=== PATIENT | male | born 1960 | race Caucasian/White ===

== ENCOUNTER 2017-01-06 12:01 | Inpatient (IN) | payer BC ==
--- NOTE | ~2017-01-06 | DS ---
Discharge Summary [facility] [address] [place]. [address] NAME: MARCOS PAEZ : 62 STATUS : DIS IN PAT#: [id number] AGE: 56 ADM/REG DATE : 01/06/17 MR#: [id number] REPORT SERV DATE: 01/09/17 DICTATED BY: PAMELA LO DATE: 01/08/17 REPORT STATUS : Draft TRANSCRIBED BY: MODL DATE: 01/08/17 ADMISSION DATE: 01/06/2017 DISCHARGE DATE: 01/08/2017 FINAL DIAGNOSES: 1. Nonischemic cardiomyopathy. 2. Left bundle branch block. 3. Typical chest pain. 4. Hypertension. DIAGNOSTIC EXAMS: CAT scan of the brain showing hyperdense vasculature either representing dehydration or polycythemia, diffuse finding. Benign choroidal fissure cyst, 7 mm on the right. Probable skin lesion in the right parietal scalp. Chest x-ray: No radiographic evidence of acute process. CAT scan of the chest showing normal heart size. Thoracic aorta is normal size and configuration. No lung masses, lung infiltrates, or adenopathy. Cervical spine x-ray showing no acute cervical spine abnormality. Echocardiogram showing moderate left ventricle systolic dysfunction with EF of 25% to 30%. Left ventricle diastolic dysfunction is present. Right ventricle systolic function intact. No significant valvular dysfunction noted. No previous study to compare. HOSPITAL COURSE: Please refer to the H and P done by Dr. Huynh dated on 01/06/2017. Briefly, this is a 56-year-old male who comes in for chest pain. The patient has a history of smoking and drinking and was doing well until he started choking on milk breads, then started having some headache and chest pain. The patient was brought to the emergency room, was found to have an elevated blood pressure. We did the above tests, and they got Cardiology involved. Because of the echocardiogram showing low ejection fraction, he underwent a cardiac cath which showed no significant CAD, normal left ventricular end- diastolic filling pressure, mildly depressed left ventricular systolic function in the single plane. Recent echo was severely depressed with EF of 25% to 30%. Findings consistent with nonischemic cardiomyopathy. Cardiology started the patient on Coreg and lisinopril and believed that the EF is actually around 40% to 45%, but because of the dyssynchrony from the left bundle branch block that it probably would show a false lower EF in the transthoracic echo. The patient was cleared for discharge and the patient is now itching to go home. The patient will follow up with his PCP, Dr. Jaime De, in a week's time and then follow up with Dr. Guzman in the [facility] in one month. He will be discharged on the following medications. Coreg 3.125 mg twice a day, lisinopril 5 mg a day, Tylenol and aspirin p.r.n., multivitamin once a day. This has been explained to the patient in front of a family member. TIME SPENT: 35 minutes. Discharge Summary [address] [address] NAME: MARCOS PAEZ : 62 STATUS : DIS IN [facility]#: [id number] AGE: 56 ADM/REG DATE : 01/06/17 MR#: [id number] REPORT SERV DATE: 01/09/17 DICTATED BY: PAMELA LO DATE: 01/08/17 REPORT STATUS : Draft TRANSCRIBED BY: ED DATE: 01/08/17 DICTATED BY: Alexandro Menendez/ED Pamela Lo M.D. / [id number] CC: Alexandro Menendez M.D.
--- NOTE | ~2017-01-06 | HP ---
History And Physical [place] [address] [facility] [place]. [address] NAME: MARCOS PAEZ : 62 STATUS : ADM Giovanni PAT#: [id number] AGE: 56 ADM/REG DATE : 01/06/17 MR#: [id number] REPORT SERV DATE: 01/06/17 DICTATED BY: SRIDHAR WATTS DATE: 01/06/17 REPORT STATUS : Draft TRANSCRIBED BY: MODL DATE: 01/06/17 DATE OF ADMISSION: 01/06/2017 REASON FOR ADMISSION: Chest pain. HISTORY OF PRESENT ILLNESS: This is a 56-year-old, white male, referred up here by Dr. De this morning. The patient went to Dr. De with complaint of the following: He was lying in a recliner yesterday, eating Milk Duds when he choked on one of them. He could get air out but could not breathe in. He coughed and strained. His called 911, however, he cleared it just before 911 arrived. Since that time, he has had a headache back of the neck. He has also had tingling in his left arm, feeling like a blood pressure cuff has blown up over it. He does have a history of high blood pressure. He was given hydrocodone for his low back pain by Dr. De. Because his blood pressure raised, he stopped hydrocodone. His blood pressure went back down to normal. He has neck pain radiating to the left arm, headache, and chest pain. Describes a pressure like blood pressure cuff being blown over his chest as well now. No worse with swallowing. No worse with deep breathing. No cough. No fever, chills, night sweats. No hemoptysis. He does not have any weakness in his left arm. Dr. Burr saw him in the emergency room and did a CT scan of his brain that showed hyperdense vasculature but otherwise was unremarkable and with the unexplained symptoms asked for admission to observation by the hospitalist to rule out serious illness looking for symptoms or signs of other abnormalities. His EKG is abnormal. He has left bundle-branch block. He had an EKG in Dr. De's office prior to sending him to the emergency room that we do not have a copy of. PAST MEDICAL HISTORY: He is on no medications. He used to be on blood pressure medicines and hydrocodone from Dr. De. He does have low back pain. 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 SOCIAL HISTORY: He has been 20 years second time. He has had two biological children from first marriage. One lives in , the other lives in [place]. 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 He smokes about a pack of cigarettes a day. He drinks 2 beers a day when he is on the road welding but at home he drinks nothing. He does not attend [employer]. FAMILY HISTORY: Mother had over 60 surgeries. He had a brother with an IA and two sisters with MIs in the past. REVIEW OF SYSTEMS: He has chest pain. No dyspnea on exertion. No coughing. He did have some vomiting after he choked while on the Milk Dud but has had none since that time. He is convinced he has History And Physical [address] [address] NAME: MARCOS PAEZ : 62 STATUS : ADM Giovanni PAT#: [id number] AGE: 56 ADM/REG DATE : 01/06/17 MR#: [id number] REPORT SERV DATE: 01/06/17 DICTATED BY: SRIDHAR WATTS DATE: 01/06/17 REPORT STATUS : Draft TRANSCRIBED BY: ED DATE: 01/06/17 coronary arterial disease because of his smoking and family history. Dr. De sees about, his cholesterol may be elevated but he is not sure, he has never been on any cholesterol medications for it. He has had no abdominal pain. No unilateral weakness. No swelling in lower extremities. No melena, hematemesis, fits, seizures, convulsions, hemoptysis, hematuria, fever, chills, night sweats, unilateral weakness. He has had no vomiting or diarrhea today. Remainder of review of systems negative. PHYSICAL EXAMINATION: VITAL SIGNS: Blood pressure 173/91 in the left, 192/98 on the right, heart rate 75, respiratory rate 18, afebrile. HEENT: EOMI. Sclerae clear. Conjunctivae pink. NECK: No bruit. No JVD. CHEST: Clear to A and P. HEART: Regular S1, S2 without murmur, gallop, or click. ABDOMEN: Soft, nontender. Bowel sounds positive. No HSM. EXTREMITIES: Have no edema. Distal pulses intact in dorsalis pedis and posterior tibial. NEUROLOGICAL: He withdraws to plantar stimulation. Cyanide Pot Hardener is symmetric bilaterally. Coordination intact. No tremor. He is symmetric neurologically bilaterally. LYMPHATICS: There is no adenopathy palpable. His strength is equal and symmetric. Sensory is grossly intact bilaterally though he has subjective complaints on the left side. LABORATORY DATA: INR is 1.0. His hemoglobin 16, hematocrit 46.5, white count 8.1, platelet count 177,000. His sodium 137, potassium 4.7, creatinine 0.79, BUN 12, magnesium 2.3. Troponin less than 0.02. The chest x-ray done shows no acute process. The CT scan of the brain is as described. ASSESSMENT: 1. Chest pain, atypical angina pectoris. The patient has strong family history and believes he has coronary artery disease, history of hypertension as well. 2. History of choking on Milk Dud. 3. Low back pain, previously on hydrocodone. 4. History of elevated blood pressure with hydrocodone. 5. Abnormal EKG with left bundle-branch block. 6. Hypertension, asymmetric in right left arm. I am going to go ahead and check his CT scan of the chest looking for thoracic aortic aneurysm. PLAN: 1. I will do serial troponins. Also check CPK. Check echocardiogram for wall motion abnormalities and the CT scan of the chest for thoracic aortic aneurysm. I doubt the nuclear medicine stress test is going to be very helpful for us because a false- positive nature of those with a left bundle-branch block. He may need a cardiac catheterization, especially if troponins rise, we will go ahead and consult [facility] to plan for cardiac catheterization in the morning and checks C-spine two views because of the neck pain. If all the tests are unrevealing, plan CT scan of the cervical spine because of left radiculopathy. History And Physical [address] [place]. [address] NAME: MARCOS PAEZ : 62 STATUS : ADM Giovanni PAT#: [id number] AGE: 56 ADM/REG DATE : 01/06/17 MR#: [id number] REPORT SERV DATE: 01/06/17 DICTATED BY: SRIDHAR WATTS DATE: 01/06/17 REPORT STATUS : Draft TRANSCRIBED BY: ED DATE: 01/06/17 DB/ED Sridhar Watts M.D. / [id number] CC: Jono Cordoba Jr, MD [facility] Jaime De M.D.
--- NOTE | ~2017-01-06 | CN ---
Consultation Report [facility] [address] [place]. [address] NAME: MARCOS PAEZ : 62 STATUS : ADM Giovanni PAT#: [id number] AGE: 56 ADM/REG DATE : 01/06/17 MR#: [id number] REPORT SERV DATE: 01/06/17 DICTATED BY: IDRIS GUZMAN DATE: 01/06/17 REPORT STATUS : Draft TRANSCRIBED BY: MODL DATE: 01/06/17 CARDIOLOGY CONSULTATION DATE OF CONSULTATION: 01/06/2017 REASON FOR CONSULTATION: Chest pain and newly diagnosed left bundle-branch block. HISTORY OF PRESENT ILLNESS: Mr. Paez is a 56-year-old man with no previous cardiovascular history. The patient reports that he was in his usual state of health until earlier today. The patient was eating candy, which he has been taking in order to reduce cravings for cigarettes. The patient apparently had an episode of severe coughing after choking on a piece of candy. Shortly after this coughing fit, the patient experienced a substernal pressure-type chest pain with radiation to his arms and neck. The patient also reported feeling somewhat diaphoretic and having dyspnea. The patient associated his symptoms with a panic attack. The patient presented to the emergency room with his for further evaluation. The patient was found to have a left bundle-branch block pattern on his 12-lead EKG. As far as the patient is aware, this is a new finding. At this time, however, the patient is chest pain-free. Of note, his blood pressure was found to be significantly elevated at the time of his ER admission with a systolic blood pressure of approximately 196 mmHg. PAST MEDICAL HISTORY: Hypertension, otherwise, noncontributory. PAST SURGICAL HISTORY: The patient denies any significant previous surgeries. FAMILY HISTORY: The patient reports that one of his sisters suffered myocardial infarction at age 55. A second sister underwent coronary artery bypass grafting surgery at age 59. The patient's father underwent coronary artery bypass grafting surgery in his late 40s. His mother was diagnosed with coronary artery disease, though at a more advanced age. SOCIAL HISTORY: The patient is a two-pack per day smoker x30 years. He is trying to quit. He drinks alcohol occasionally. He denies recreational drug use. He is . ALLERGIES: THE PATIENT REPORTS NO KNOWN MEDICATION ALLERGIES. HOME MEDICATIONS: The patient takes aspirin 81 mg p.o. daily as well as a multivitamin with no doctor-prescribed medications. REVIEW OF SYSTEMS: A complete 12-system review was performed. This is noncontributory except for the pertinent positives and negatives noted in the history of present illness above. PHYSICAL EXAMINATION: VITAL SIGNS: Temperature is 98.4 degrees Fahrenheit, blood pressure 135/91 mmHg, heart rate Consultation Report [address] [address] NAME: MARCOS PAEZ : 62 STATUS : ADM Giovanni PAT#: [id number] AGE: 56 ADM/REG DATE : 01/06/17 MR#: [id number] REPORT SERV DATE: 01/06/17 DICTATED BY: IDRIS GUZMAN DATE: 01/06/17 REPORT STATUS : Draft TRANSCRIBED BY: ED DATE: 01/06/17 is 66 beats per minute and regular, respirations 16, oxygen saturation is 98% on room air. CONSTITUTIONAL: The patient is a well-nourished, well-developed white man in no acute distress. EYES: PERRL, EOMI, clear conjunctiva. HEAD/MNT: NCAT with moist mucous membranes and grossly normal hard and soft palate. NECK: Supple with no obvious thyromegaly or lymphadenopathy CARDIOVASCULAR: There is a regular rhythm with a normal S1 and a paradoxically split second heart sound. No significant murmurs, rubs, or gallops are noted. The jugular venous pressure is normal. PULMONARY: Clear to auscultation bilaterally, no wheezing, rales or rhonchi noted. No dullness to percussion. Non-labored. ABDOMINAL: Soft, non-tender, non-distended with no hepatosplenomegaly noted. EXTREMITIES: No clubbing, cyanosis or edema. MUSCULOSKELETAL: Grossly normal strength and range of motion in all extremities INTEGUMENTARY: Skin appears intact with no bruises, wounds or active lesions noted NEURO/PSYC: Alert and oriented x3, with no dysarthria, facial droop or lateralizing weakness noted. Insert physical exam template for Pantera Guzman modified as follows. 12-lead EKG: This shows normal sinus rhythm with a left bundle-branch block pattern and secondary ST/T-wave changes. No previous ECGs are available. LABORATORY DATA: White blood cell count is 8.1, hemoglobin 16, hematocrit 47, and platelets 177. INR is 1.0. Chemistry profile shows a sodium of 143, potassium 4.7, chloride is 111, CO2 of 29, BUN 12, creatinine is 0.79, glucose is 96, calcium 9.6, magnesium 2.3. Troponin is less than 0.02 with a 2nd troponin also less than 0.02 and a total CK of 68. CHEST X-RAY: No acute cardiopulmonary process. ASSESSMENT AND PLAN: 1. Chest pain with typical and atypical features: The patient reports that prior to his recent event, he was able to exercise essentially without restriction. The patient denies any exertional chest pain. However, the patient's episode does have features of unstable angina. The patient also has multiple cardiovascular risk factors which include male gender, cigarette smoking, and a strong positive family history of early coronary heart disease. At this time, the patient remains relatively hypertensive. He will be started on carvedilol 3.125 mg p.o. twice daily. Should this not achieve a systolic blood pressure consistently less than 180 and a diastolic blood pressure consistently less than 95 mmHg, we will also start lisinopril 5 mg p.o. daily. We will continue aspirin. A transthoracic echocardiogram will be obtained tomorrow. Should this be unremarkable, I will discuss the options for further workup. Specifically, we will discuss the pros and cons of a noninvasive workup with myocardial perfusion imaging versus coronary angiography for definitive diagnosis. The patient will be made n.p.o. past midnight tonight. 2. Hypertension: Start carvedilol as noted above. Consultation Report [address] [address] NAME: MARCOS PAEZ : 62 STATUS : ADM Giovanni PAT#: [id number] AGE: 56 ADM/REG DATE : 01/06/17 MR#: [id number] REPORT SERV DATE: 01/06/17 DICTATED BY: IDRIS GUZMAN DATE: 01/06/17 REPORT STATUS : Draft TRANSCRIBED BY: ED DATE: 01/06/17 3. Tobacco abuse: I will discuss strategies for smoking cessation with the patient depending on results of his workup. Thank you for allowing me to participate in the care of Mr. Paez. The Cardiology Service will continue to follow this patient closely during this hospitalization. ARPAN/ED Idris Guzman MD / [id number] CC: Jaon Coleman M.D.
[2017-01-06 11:32] LABS: BASOPHILS 0.4 %; BASOPHILS ABSOLUTE 0.03 10/3/uL (0.0-0.16); EOSINOPHILS 1.5 %; EOSINOPHILS ABSOLUTE 0.12 10/3/uL (0.0-0.53); ER CBC TAT 0 Hrs 16 Mins; HEMATOCRIT 46.5 % (40.0-51.0); IMMATURE GRANULOCYTES 0.2 %; IMMATURE GRANULOCYTES ABSOLUTE 0.02 10/3/uL (0.0-0.11); LYMPHOCYTES ABSOLUTE 2.74 10/3/uL (0.67-4.30); MEAN CORPUS HGB CONC 34.4 g/dL (32.0-36.0); MEAN CORPUSCULAR HEMOGLOB 31.7 pg (26.0-34.0); MEAN CORPUSCULAR VOLUME 92.3 fL (80-100); MEAN PLATELET VOLUME 10.6 fL (9.2-13.0); MONOCYTES ABSOLUTE 0.56 10/3/uL (0.21-1.20); NEUTROPHILS 56.9 %; NEUTROPHILS ABSOLUTE 4.58 10/3/uL (2.02-8.40); PLATELET COUNT 177 10/3/uL (150-400); RBC DISTRIBUTION WIDTH 13.5 % (12.0-16.0); RED CELL COUNT 5.04 10/6/uL (4.7-6.1); WHITE BLOOD CELLS 8.1 10/3/uL (4.5-10.5)
[2017-01-06 11:34] LABS: MANUAL DIFF NO %
[2017-01-06 11:38] LABS: PARTIAL THROMBO TIME 32.6 SEC (22.5-37.2); PROTIME (NOT ORD) 12.9 SEC (12.0-14.5)
[2017-01-06 11:51] LABS: BUN (BLOOD UREA NITROGEN) 12 MG/DL (6-23); CALCIUM, SERUM 9.6 MG/DL (8.5-10.4); CHLORIDE, SERUM 111 MMOL/L (96-112); CO2 (CARBON DIOXIDE) 29 MMOL/L (24-34); CREATININE 0.79 MG/DL (0.70-1.30); GFR AFRICAN AMERICAN 117 ML/MIN (>=60); GFR NON AFRICAN AMERICAN 101 ML/MIN (>=60); GLUCOSE, SERUM 96 MG/DL (60-99); POTASSIUM, SERUM 4.7 MMOL/L (3.5-5.3); SODIUM, SERUM 143 MMOL/L (135-148); TROPONIN I <0.02 NG/ML (<0.05)
[2017-01-06 11:53] LABS: CHEST PAIN PROFILE TAT 0 Hrs 35 Mins
[2017-01-06] MEDS ORDERED: T PO (14:44)
[2017-01-06] MEDS ORDERED: ASAB PO (14:45)
[2017-01-06] MEDS ORDERED: CENTRUM PO (14:45)
[2017-01-06 17:38] LABS: CPK 68 U/L (0-200); TROPONIN I <0.02 NG/ML (<0.05)
[2017-01-07 04:32] LABS: BASOPHILS 0.4 %; BASOPHILS ABSOLUTE 0.03 10/3/uL (0.0-0.16); EOSINOPHILS 3.5 %; EOSINOPHILS ABSOLUTE 0.27 10/3/uL (0.0-0.53); HEMATOCRIT 45.5 % (40.0-51.0); HEMOGLOBIN 15.7 g/dL (13.6-17.8); IMMATURE GRANULOCYTES 0.1 %; IMMATURE GRANULOCYTES ABSOLUTE 0.01 10/3/uL (0.0-0.11); LYMPHOCYTES 38.2 %; LYMPHOCYTES ABSOLUTE 2.92 10/3/uL (0.67-4.30); MANUAL DIFF NO %; MEAN CORPUS HGB CONC 34.5 g/dL (32.0-36.0); MEAN CORPUSCULAR HEMOGLOB 32.1 pg (26.0-34.0); MEAN PLATELET VOLUME 11.2 fL (9.2-13.0); MONOCYTES 7.6 %; MONOCYTES ABSOLUTE 0.58 10/3/uL (0.21-1.20); NEUTROPHILS 50.2 %; NEUTROPHILS ABSOLUTE 3.83 10/3/uL (2.02-8.40); PLATELET COUNT 185 10/3/uL (150-400); RBC DISTRIBUTION WIDTH 13.3 % (12.0-16.0); RED CELL COUNT 4.89 10/6/uL (4.7-6.1); WHITE BLOOD CELLS 7.6 10/3/uL (4.5-10.5)
[2017-01-07 04:46] LABS: BUN (BLOOD UREA NITROGEN) 15 MG/DL (6-23); CALCIUM, SERUM 9.1 MG/DL (8.5-10.4); CHLORIDE, SERUM 108 MMOL/L (96-112); CO2 (CARBON DIOXIDE) 26 MMOL/L (24-34); CREATININE 0.85 MG/DL (0.70-1.30); GFR AFRICAN AMERICAN 114 ML/MIN (>=60); GFR NON AFRICAN AMERICAN 98 ML/MIN (>=60); GLUCOSE, SERUM 117 MG/DL (60-99); POTASSIUM, SERUM 4.2 MMOL/L (3.5-5.3); SODIUM, SERUM 138 MMOL/L (135-148)
[2017-01-07 18:34] LABS: CHOL/HDL RATIO(NOT ORDER) 7.7 (0-5); CHOLESTEROL 193 MG/DL (< 200); HDL CHOLESTEROL 25 MG/DL (> 39); NON-HDL CHOLESTEROL 168 MG/DL (< 160); TRIGLYCERIDE 433 MG/DL (< 150)
[2017-01-08 05:24] LABS: BASOPHILS 0.3 %; BASOPHILS ABSOLUTE 0.02 10/3/uL (0.0-0.16); EOSINOPHILS 2.9 %; EOSINOPHILS ABSOLUTE 0.22 10/3/uL (0.0-0.53); HEMATOCRIT 44.9 % (40.0-51.0); HEMOGLOBIN 15.3 g/dL (13.6-17.8); IMMATURE GRANULOCYTES 0.1 %; IMMATURE GRANULOCYTES ABSOLUTE 0.01 10/3/uL (0.0-0.11); LYMPHOCYTES 36.7 %; LYMPHOCYTES ABSOLUTE 2.78 10/3/uL (0.67-4.30); MEAN CORPUS HGB CONC 34.1 g/dL (32.0-36.0); MEAN CORPUSCULAR HEMOGLOB 31.7 pg (26.0-34.0); MEAN CORPUSCULAR VOLUME 93.2 fL (80-100); MEAN PLATELET VOLUME 10.9 fL (9.2-13.0); MONOCYTES 9.1 %; MONOCYTES ABSOLUTE 0.69 10/3/uL (0.21-1.20); NEUTROPHILS 50.9 %; NEUTROPHILS ABSOLUTE 3.86 10/3/uL (2.02-8.40); PLATELET COUNT 174 10/3/uL (150-400); RBC DISTRIBUTION WIDTH 13.2 % (12.0-16.0); RED CELL COUNT 4.82 10/6/uL (4.7-6.1); WHITE BLOOD CELLS 7.6 10/3/uL (4.5-10.5)
[2017-01-08 05:25] LABS: MANUAL DIFF NO %
[2017-01-08 05:33] LABS: BUN (BLOOD UREA NITROGEN) 16 MG/DL (6-23); CALCIUM, SERUM 8.9 MG/DL (8.5-10.4); CHLORIDE, SERUM 109 MMOL/L (96-112); CO2 (CARBON DIOXIDE) 28 MMOL/L (24-34); CREATININE 0.97 MG/DL (0.70-1.30); GFR AFRICAN AMERICAN 101 ML/MIN (>=60); GFR NON AFRICAN AMERICAN 88 ML/MIN (>=60); GLUCOSE, SERUM 97 MG/DL (60-99); POTASSIUM, SERUM 4.4 MMOL/L (3.5-5.3); SODIUM, SERUM 138 MMOL/L (135-148)
[2017-01-08] MEDS ORDERED: COREG3 PO (09:27)
[2017-01-08] MEDS ORDERED: PRIN5 PO (09:28)
== END 2017-01-08 10:53 | disposition home or self-care (01) | DRG 287 ==
LOC: ER 12:01 → CDU1 15:11 → 6NO 01-07 19:02
PROVIDERS: Emergency Medicine; Internal Medicine; Internal Medicine Cardiovascular Disease; Internal Medicine Pulmonary Disease
PROC: 4A023N7 Measurement of Cardiac Sampling and Pressure, Left Heart, Percutaneous Approach (ICD-10-PCS; principal; 2017-01-07)
PROC: B2111ZZ Fluoroscopy of Multiple Coronary Arteries using Low Osmolar Contrast (ICD-10-PCS; 2017-01-07)
PROC: B2151ZZ Fluoroscopy of Left Heart using Low Osmolar Contrast (ICD-10-PCS; 2017-01-07)
DX: I42.9 Cardiomyopathy, unspecified (principal); I10 Essential (primary) hypertension; R07.9 Chest pain, unspecified; Z82.49 Family history of ischemic heart disease and other diseases of the circulatory system; I44.7 Left bundle-branch block, unspecified; Z87.891 Personal history of nicotine dependence
CPT/HCPCS: 70450; 71010; 71260; 72050; 80048; 80061; 82550; 83735; 84484; 85025; 85610; 85730; 93005; 93306; 93458; 99152; 99285; A9270-GY; C1769; C1887; C1894; J1170; J2250; J3010; Q9967